=== PATIENT | male | born 1985 | race Caucasian/White ===

== ENCOUNTER 2016-06-11 21:25 | Emergency (ER) | payer OTHER ==
[~2016-06-11 21:25] MED LIST: PEPCID
== END 2016-06-11 22:03 | disposition home or self-care (01) ==
LOC: SED 21:25
DX: S01.511A Laceration without foreign body of lip, initial encounter (principal); Z23 Encounter for immunization; W22.8XXA Striking against or struck by other objects, initial encounter; Y92.098 Other place in other non-institutional residence as the place of occurrence of the external cause
CPT/HCPCS: 12013; 90471; 90715; 99283